=== PATIENT | male | born 1965 | race Caucasian/White ===

== ENCOUNTER 2022-02-06 17:10 | Emergency (ER) | payer OTHER ==
[2022-02-06 17:16] VITALS: BP 147/93; PULSE 90; TEMP 98.2; BMI 38.0
== END 2022-02-06 18:48 | disposition home or self-care (01) ==
LOC: JERFT 17:10
DX: M79.89 Other specified soft tissue disorders (principal)
CPT/HCPCS: 73610-TC-RT-FY; 73630-TC-RT-FY; 99283-25

== ENCOUNTER 2024-10-23 10:16 | Emergency (ER) | payer BC, OTHER ==
[2024-10-23 10:39] VITALS: BP 139/77; PULSE 91; RESP 18; TEMP 98.6; BMI 30.7
== END 2024-10-23 12:39 | disposition home or self-care (01) ==
LOC: JER 10:16 → JERFT 10:16
DX: R50.9 Fever, unspecified (principal); R05.9 Cough, unspecified; R51.9 Headache, unspecified; B34.9 Viral infection, unspecified; J02.9 Acute pharyngitis, unspecified; H92.09 Otalgia, unspecified ear; Z20.822 Contact with and (suspected) exposure to COVID-19
CPT/HCPCS: 0241U-QW; 71046-TC-FY; 87651; 99284-25